=== PATIENT | female | born 1960 | race Caucasian/White ===

== ENCOUNTER 2017-07-11 12:19 | Emergency (ER) | payer OTHER, SELFPAY ==
[2017-07-11 12:21] VITALS: BP 149/68; PULSE 91; PULSE 93; RESP 24; TEMP 37.5; O2SAT 95; O2SAT 96; BMI 32.5
--- NOTE | 2017-07-11 12:29 | XR_ITS ---
XR chest 2V HISTORY: ITS.REASON: cough and burning in the chest ORDERING PHYSICIAN: Carisa Adkins MD PATIENT AGE: 57 years COMPARISON: None available FINDINGS: The cardiomediastinal silhouette and pulmonary vascularity are within normal limits. The lungs are clear without infiltrates, suspicious nodules, or pleural effusions. There is mild thoracic curvature convex right No acute bony abnormalities. IMPRESSION: Negative chest, no acute finding
--- NOTE | 2017-07-11 12:31 | [facility].EDURI ---
ED Disposition Clinical Impression: Acute tracheitis, Tobacco use disorder, Diabetes, Influenza A Disposition: Home, Self-Care Condition on Discharge: Fair Additional Instructions: 1- stop smoking. 2- use a humidifier. 3- star ttamiflu. 4- see pcp in am for a recheck and follow up on final cxr report. Prescriptions: Oseltamivir Phosphate [Tamiflu 75mg Capsule] 75 mg PO BID #10 cap Referrals: Varsha Chilel APRN [Primary Care Provider] - - Critical Care Critical Care Time: No Attestation: On , the high probability of a clinically significant, sudden or life threatening deterioration of the following system(s) required my full and direct attention, intervention and personal management. The time I documented below is in addition to time spent performing reported procedures but includes the following listed in this critical care notation. Medical Decision Making - Medical Records Medical records reviewed: Yes: I reviewed the patient's medical records. Vital Signs: 07/11/17 12:21 07/11/17 13:09 Temperature 99.5 F Temperature Source Oral Pulse Rate 75 Pulse Rate [Right Brachial] 93 H Respiratory Rate 24 Blood Pressure [Right Arm] 149/68 Blood Pressure Mean [Right Arm] 95 Blood Pressure Source [Right Arm] Automatic Cuff Blood Pressure Position [Right Arm] Supine 02 Sat by Pulse Oximetry 96 Oxygen Delivery Method Room Air - Lab Data Lab Results 07/11/17 12:40: WBC 11.8 H, RBC 4.91, Hgb 14.9, Hct 46.3, MCV 94.2, MCH 30.3, MCHC 32.1, RDW 13.5, Plt Count 200, MPV 8.8, Neut % (Auto) 86.3 H, Lymph % (Auto) 7.5 L, [place] % (Auto) 5.6, Eos % (Auto) 0.2, Baso % (Auto) 0.3, Neut # (Auto) 10.2 H, Lymph # (Auto) 0.9, [place] # (Auto) 0.7, Eos # (Auto) 0.0, Baso # (Auto) 0.0, Total Counted 100, Neutrophils % (Manual) 69, Band Neutrophils % 22.0 H, Lymphocytes % (Manual) 4 L, Monocytes % (Manual) 5, Platelet Estimate Normal, RBC Morphology Normal 07/11/17 12:40: Sodium 129 L, Potassium 3.7, Chloride 95 L, Carbon Dioxide 22, Anion Gap 15.7 H, BUN 8, Creatinine 0.99, Estimated Creat Clear 95, Estimated GFR 58 L, Est GFR ( Amer) 70, Glucose 171 H, Calcium 8.2 L, Total Bilirubin 0.3, AST 51 H, ALT 90 H, Alkaline Phosphatase 106, Total Creatine Kinase 101, CK-MB (CK-2) < 0.5, CK-MB (CK-2) Rel Index 0.5, Troponin I < 0.02, Total Protein 7.8, Albumin 3.4, Globulin 4.4 H, Albumin/Globulin Ratio 0.8 L 07/11/17 12:40: Influenza Type A Ag Negative, Influenza Type B Ag Positive A, Group A Strep Rapid Negative Result diagrams: 07/11/17 12:40 07/11/17 12:40 Orders (Tests/Meds): ED MEDICATIONS Generic Name Dose Route Start Last Admin Trade Name Freq PRN Reason Stop Dose Admin Albuterol/Ipratropium 3 ml 07/11/17 12:45 07/11/17 13:08 Duoneb 3ml Neb IH 08/10/17 12:44 3 ml Q1H BERNARDO Administration Discontinued Medications Generic Name Dose Route Start Last Admin Trade Name Freq PRN Reason Stop Dose Admin Methylprednisolone Sodium Succinate 125 mg 07/11/17 12:36 07/11/17 12:38 Solu-Medrol 125mg/2ml Vial IV 07/11/17 12:37 125 mg ONCE ONE Administration ORDERS Category Date Time Status XR chest 2V Stat Exams 07/11/17 12:29 Taken Strep Screen Confirmation Stat Micro 07/11/17 12:40 Received ECG Request by /Miki Stat Y 07/11/17 12:29 Ordered - Radiology Data #1 Image(s): Chest Image Reviewed: Yes I reviewed the patient's radiology image Preliminary Findings: Normal/NAD - ECG Data Tracing #1 Normal sinus rhythm 92/min right atrial enlargement poor R-wave progression no acute findings. ECG initial impression date: 07/11/17 ECG initial impression time: 12:35 - Dane Inquiry Pt receiving controlled substance: No Dane was queried for this patient: No URI/Sore Throat HPI - General Chief Complaint: Chest Pain Stated Complaint: chest pain, soa Mode of Arrival: Ambulatory Limitations: No Limitations Description of Symptoms (Recalled from ER [facility]
--- NOTE | 2017-07-11 12:35 | ED_ITS ---
ED Disposition Clinical Impression: Acute tracheitis, Tobacco use disorder, Diabetes, Influenza A Disposition: Home, Self-Care Condition on Discharge: Fair Additional Instructions: 1- stop smoking. 2- use a humidifier. 3- star ttamiflu. 4- see pcp in am for a recheck and follow up on final cxr report. Prescriptions: Oseltamivir Phosphate [Tamiflu 75mg Capsule] 75 mg PO BID #10 cap Referrals: Varsha Chilel APRN [Primary Care Provider] - - Critical Care Critical Care Time: No Attestation: On , the high probability of a clinically significant, sudden or life threatening deterioration of the following system(s) required my full and direct attention, intervention and personal management. The time I documented below is in addition to time spent performing reported procedures but includes the following listed in this critical care notation. Medical Decision Making - Medical Records Medical records reviewed: Yes: I reviewed the patient's medical records. Vital Signs: 07/11/17 12:21 07/11/17 13:09 Temperature 99.5 F Temperature Source Oral Pulse Rate 75 Pulse Rate [Right Brachial] 93 H Respiratory Rate 24 Blood Pressure [Right Arm] 149/68 Blood Pressure Mean [Right Arm] 95 Blood Pressure Source [Right Arm] Automatic Cuff Blood Pressure Position [Right Arm] Supine 02 Sat by Pulse Oximetry 96 Oxygen Delivery Method Room Air - Lab Data Lab Results 07/11/17 12:40: WBC 11.8 H, RBC 4.91, Hgb 14.9, Hct 46.3, MCV 94.2, MCH 30.3, MCHC 32.1, RDW 13.5, Plt Count 200, MPV 8.8, Neut % (Auto) 86.3 H, Lymph % (Auto ) 7.5 L, [place] % (Auto) 5.6, Eos % (Auto) 0.2, Baso % (Auto) 0.3, Neut # (Auto) 10.2 H, Lymph # (Auto) 0.9, [place] # (Auto) 0.7, Eos # (Auto) 0.0, Baso # (Auto) 0.0, Total Counted 100, Neutrophils % (Manual) 69, Band Neutrophils % 22.0 H, Lymphocytes % (Manual) 4 L, Monocytes % (Manual) 5, Platelet Estimate Normal, RBC Morphology Normal 07/11/17 12:40: Sodium 129 L, Potassium 3.7, Chloride 95 L, Carbon Dioxide 22, Anion Gap 15.7 H, BUN 8, Creatinine 0.99, Estimated Creat Clear 95, Estimated GFR 58 L, Est GFR ( Amer) 70, Glucose 171 H, Calcium 8.2 L, Total Bilirubin 0.3, AST 51 H, ALT 90 H, Alkaline Phosphatase 106, Total Creatine Kinase 101, CK-MB (CK-2) < 0.5, CK-MB (CK-2) Rel Index 0.5, Troponin I < 0.02, Total Protein 7.8, Albumin 3.4, Globulin 4.4 H, Albumin/Globulin Ratio 0.8 L 07/11/17 12:40: Influenza Type A Ag Negative, Influenza Type B Ag Positive A, Group A Strep Rapid Negative Result diagrams: 07/11/17 12:40 07/11/17 12:40 Orders (Tests/Meds): ED MEDICATIONS Generic Name Dose Route Start Last Admin Trade Name Freq PRN Reason Stop Dose Admin Albuterol/Ipratropium 3 ml 07/11/17 12:45 07/11/17 13:08 Duoneb 3ml Neb IH 08/10/17 12:44 3 ml Q1H BERNARDO Administration Discontinued Medications Generic Name Dose Route Start Last Admin Trade Name Freq PRN Reason Stop Dose Admin Methylprednisolone Sodium Succinate 125 mg 07/11/17 12:36 07/11/17 12:38 Solu-Medrol 125mg/2ml Vial IV 07/11/17 12:37 125 mg ONCE ONE Administration ORDERS Category Date Time Status XR chest 2V Stat Exams 07/11/17 12:29 Taken Strep Screen Confirmation Stat Micro 07/11/17 12:40 Received ECG Request by /Miki Stat Y 07/11/17 12:29 Ordered
[2017-07-11 12:55] LABS: Basophils % 0.3 % (0.1-2.0); Eosinophils % 0.2 % (0.1-12.0); Hematocrit 46.3 % (37.0-47.0); Hemoglobin 14.9 g/dL (12.2-16.2); Lymphocytes # 0.9 K/mm3 (0.7-4.5); Lymphocytes % 7.5 K/mm3 (10-50); Mean Corpuscular HGB Conc 32.1 g/dL (31.8-35.4); Mean Corpuscular Hemoglobin 30.3 pg (27.0-31.2); Mean Corpuscular Volume 94.2 fl (81-99); Mean Platelet Volume 8.8 fl (7.4-10.4); Monocytes # 0.7 K/mm3 (0.1-1.0); Monocytes % 5.6 % (1.7-9.3); Neutrophils # 10.2 K/mm3 (1.8-7.8); Neutrophils % 86.3 % (37.0-80.0); Platelet Count 200 K/mm3 (142-424); Red Blood Count 4.91 M/mm3 (4.20-5.40); Red Cell Distribution Width 13.5 % (11.5-17.5); White Blood Count 11.8 K/mm3 (4.8-10.8)
[2017-07-11 13:05] LABS: MANUAL DIFFERENTIAL MANUAL DIFFERENTIAL (MANUAL DIFF)
[2017-07-11 13:06] LABS: Strep Scrn Group A (Rapid) Negative (Negative)
[2017-07-11 13:09] VITALS: PULSE 75; PULSE 77
[2017-07-11 13:18] LABS: Lymphocytes % 4 % (10-50); Monocytes % 5 % (2-9); Neutrophils % 69 % (42-76); Platelet Estimate Normal; Total Cells Counted 100
[2017-07-11 13:19] LABS: RBC Morphology Normal
[2017-07-11 13:27] LABS: Alanine Aminotransferase 90 U/L (12-78); Albumin Level 3.4 gm/dL (3.4-5.0); Albumin/Globulin Ratio 0.8 (1.1-1.8); Alkaline Phosphatase 106 U/L (46-116); Anion Gap 15.7 mEq/L (5-15); Aspartate Amino Transferase 51 U/L (15-37); Bilirubin,Total 0.3 mg/dL (0.2-1.0); Blood Urea Nitrogen 8 mg/dL (7-18); Calcium 8.2 mg/dL (8.5-10.1); Carbon Dioxide 22 mmol/L (21.0-32.0); Chloride 95 mmol/L (98-107); Creatine Kinase 101 U/L (26-192); Creatinine Clearance Estimated 95 mL/min (0-300); Creatinine,Serum 0.99 mg/dL (0.55-1.02); Estimated Glomerular Filt Rate 58 ml/min (>60); GFR (African American) 70 ML/MIN (>60); Globulin 4.4 gm/dl (1.3-3.2); Glucose 171 mg/dL (74-106); Potassium 3.7 mmoL/L (3.5-5.1); Sodium 129 mmol/L (136-145); Total Protein,Serum 7.8 gm/dL (6.4-8.2); Troponin I < 0.02 ng/ml (0.00-0.06)
[2017-07-11 13:33] LABS: CKMB Relative Index 0.5 U/L (0-4.0); Creatine Kinase MB < 0.5 mg/ml (0.0-3.6)
[2017-07-11 14:24] VITALS: BP 149/88; PULSE 91; RESP 22; TEMP 36.8
== END 2017-07-11 14:24 | disposition home or self-care (01) ==
PROVIDERS: Emergency Provider Emergency Medicine; PCP Nurse Practitioner Family
DX: J04.10 Acute tracheitis without obstruction (principal); E11.9 Type 2 diabetes mellitus without complications; J11.1 Influenza due to unidentified influenza virus with other respiratory manifestations; F17.210 Nicotine dependence, cigarettes, uncomplicated
CPT/HCPCS: 71046; 80053; 82550; 82553; 84484; 85007; 85025; 87275; 87276; 87430; 93005; 93041; 96365; 96374; 99284